=== PATIENT | male | born 1985 | race Caucasian/White ===

== ENCOUNTER → 2017-03-08 | Outpatient (CLI) | payer BC, SELFPAY ==
--- NOTE | 2017-03-08 14:39 | US ---
EXAM DESCRIPTION: Abdomen,Complete CLINICAL HISTORY: 31 years,Male,ABD PN COMPARISON: None TECHNIQUE: Multiple real-time sonographic images were obtained of the entire abdomen. FINDINGS: The liver demonstrates normal echotexture. No masses. No cysts. The liver craniocaudal length is 14.9 cm. The gallbladder demonstrates an anechoic lumen. There are no stones. There is no pericholecystic fluid. The gallbladder wall thickness is unremarkable. No intrahepatic biliary ductal dilatation. The common bile duct measures two mm. The right kidney demonstrates normal cortical echotexture and thickness. There are no stones, hydronephrosis, or masses. The right kidney measures 11.8 cm in length. The left kidney demonstrates normal cortical echotexture and thickness. There are no stones, hydronephrosis, or masses. The left kidney measures 11 cm in length. The spleen demonstrates normal echotexture. No masses. It measures 13 cm in craniocaudal length. The visualized portions of the head and body of the pancreas are unremarkable. No free-fluid in the abdomen. The aorta is unremarkable for age. IMPRESSION: Unremarkable ultrasound of the abdomen. Electronically signed by: Misael Hassan MD 03/08/2017 2:37 PM CDT
== END | disposition home or self-care (01) ==
LOC: US 08:13
PROVIDERS: ATTEND Surgery
DX: R10.11 Right upper quadrant pain (principal)

== ENCOUNTER → 2017-04-15 | Outpatient (CLI) | payer BC | END | disposition home or self-care (01) | LOC: LAB.O 16:40 | PROVIDERS: ATTEND Surgery | DX: R10.819 Abdominal tenderness, unspecified site (principal) ==

== ENCOUNTER → 2017-10-02 | Outpatient (CLI) | payer BC ==
--- NOTE | 2017-10-02 16:55 | CT ---
PROCEDURE: Abdomen/Pelvis w/Contrast HISTORY: LLQ PAIN Indication: Same as above Comparison: 10/18/2016 . Technique: CT of the abdomen and pelvis was done with intravenous contrast. Images were obtained from the lung base to the level of the pubic symphysis in axial plane, followed by orthogonal sagittal and coronal reconstruction. Oral contrast was also given for the study. The patient was injected with contrast intravenously, without any documented immediate adverse reactions. This exam was performed according to our departmental dose-optimization program, which includes automated exposure control, adjustment of the mA and/or KV according to the patient's size and/or use of iterative reconstruction technique. FINDINGS: Images through the lung bases do not show any focal infiltrates or pleural effusions. The liver, gallbladder, pancreas, spleen and the bilateral adrenal glands appear unremarkable. The bilateral kidneys enhance with contrast in a normal fashion. The urinary bladder is unremarkable . The bilateral ureters and the bilateral periureteral soft tissues and fat planes are unremarkable. The small bowel appears unremarkable, without any evidence of small bowel obstruction or bowel wall thickening. There is no CT evidence of pericecal inflammatory change or ileocecal mesenteric adenitis. The appendix is not visualized and is most likely surgically absent The ileocecal junction appears unremarkable. There is no CT evidence of acute colonic diverticulitis or colitis or large bowel obstruction. There is evidence of prior surgery in the region of the large probable The splenic and portal veins are of normal caliber, without any filling defects. There is no pathological lymphadenopathy in the retroperitoneum or in the pelvic region. There is no evidence of free fluid or free air in the abdomen or the pelvic region. There is no clinically significant abdominal aortic aneurysm. There is presence of [id number]-ru-uhnypygu size fat-containing periumbilical ventral hernia defect The visualized lumbar spine is unremarkable . The paravertebral soft tissues are unremarkable. The remainder of the pelvic structures are unremarkable. IMPRESSION: There are no acute findings on the current study. There is presence of qzvql-np-rozocbdl size fat-containing periumbilical ventral hernia defect Location of Interpretation: [facility] Electronically signed by: Lexx Queen MD 10/02/2017 4:53 PM CDT Workstation: [id number]
--- NOTE | 2017-10-02 20:01 | CT ---
PROCEDURE: Abdomen/Pelvis w/Contrast HISTORY: LLQ PAIN Indication: Same as above Comparison: 10/18/2016 . Technique: CT of the abdomen and pelvis was done with intravenous contrast. Images were obtained from the lung base to the level of the pubic symphysis in axial plane, followed by orthogonal sagittal and coronal reconstruction. Oral contrast was also given for the study. The patient was injected with contrast intravenously, without any documented immediate adverse reactions. This exam was performed according to our departmental dose-optimization program, which includes automated exposure control, adjustment of the mA and/or KV according to the patient's size and/or use of iterative reconstruction technique. FINDINGS: Images through the lung bases do not show any focal infiltrates or pleural effusions. The liver, gallbladder, pancreas, spleen and the bilateral adrenal glands appear unremarkable. The bilateral kidneys enhance with contrast in a normal fashion. The urinary bladder is unremarkable . The bilateral ureters and the bilateral periureteral soft tissues and fat planes are unremarkable. The small bowel appears unremarkable, without any evidence of small bowel obstruction or bowel wall thickening. There is no CT evidence of pericecal inflammatory change or ileocecal mesenteric adenitis. The appendix is not visualized and is most likely surgically absent The ileocecal junction appears unremarkable. There is no CT evidence of acute colonic diverticulitis or colitis or large bowel obstruction. There is evidence of prior surgery in the region of the large probable The splenic and portal veins are of normal caliber, without any filling defects. There is no pathological lymphadenopathy in the retroperitoneum or in the pelvic region. There is no evidence of free fluid or free air in the abdomen or the pelvic region. There is no clinically significant abdominal aortic aneurysm. There is presence of jvrtz-bx-bueqbrju size fat-containing periumbilical ventral hernia defect The visualized lumbar spine is unremarkable . The paravertebral soft tissues are unremarkable. The remainder of the pelvic structures are unremarkable. IMPRESSION: There are no acute findings on the current study. There is presence of jnxyc-lp-cybsdsfn size fat-containing periumbilical ventral hernia defect Location of Interpretation: [facility] Electronically signed by: Lexx Queen MD 10/02/2017 4:53 PM CDT Workstation: [id number]
== END ==
LOC: CT 09:35
PROVIDERS: ATTEND Surgery
DX: R10.32 Left lower quadrant pain (principal); K42.9 Umbilical hernia without obstruction or gangrene

== ENCOUNTER → 2018-08-28 | Outpatient (CLI) | payer BC, OTHER ==
--- NOTE | 2018-08-28 09:20 | US ---
EXAM DESCRIPTION: Abdomen,Complete CLINICAL HISTORY: ABDOMINAL PAIN ELEVATED LFTS COMPARISON: None Available. TECHNIQUE: Complete abdominal ultrasound FINDINGS: Visualized portions of the pancreas are unremarkable. No peripancreatic fluid. Bowel gas obscures some areas. Normal caliber of the aorta. Normal appearance of the inferior vena cava. Liver parenchyma is homogeneous in texture with increased echogenicity consistent with diffuse hepatic steatosis. There is sparing of parenchyma near the gallbladder. No liver mass or intrahepatic bile duct dilatation. No liver surface irregularity. Normal appearance of hepatic veins and portal vein. Gallbladder appears normal with no intraluminal stones. No gallbladder wall thickening. Common bile duct is normal in caliber measuring 6.1 mm. The right kidney measures 11.3 cm in length. Normal renal cortical echogenicity. The renal cortical thickness appears normal. No right renal mass, shadowing stone or cyst. There is no hydronephrosis. Spleen is large measuring 13.5 cm in length. No focal splenic lesion. The left kidney measures 12.1 cm in length. Normal renal cortical echogenicity. The renal cortical thickness appears normal. No left renal mass, shadowing stone or cyst. There is no hydronephrosis. IMPRESSION: Hyperechoic liver consistent with diffuse hepatic steatosis. Splenomegaly. Electronically signed by: Jose Longo MD 08/28/2018 9:18 AM CDT
== END ==
LOC: US 08:05
PROVIDERS: ATTEND Nurse Practitioner Family
DX: R10.817 Generalized abdominal tenderness (principal); R94.5 Abnormal results of liver function studies; R16.1 Splenomegaly, not elsewhere classified

== ENCOUNTER 2019-08-18 14:13 | Emergency (ER) | payer BC, OTHER ==
[2019-08-18] MEDS ORDERED: ACETAMINOPHEN 500 MG TAB PO ONE (14:49)
[2019-08-18] MEDS ORDERED: MORPHINE SULFATE INJ 10 MG/ML VIAL IV ONE (14:49)
[2019-08-18] MEDS ORDERED: SODIUM CHLORIDE 0.9% 1000ML 1,000 ML IVS ONE (14:49)
[2019-08-18] MEDS ORDERED: ONDANSETRON INJ 4 MG/2 ML VIAL IV ONE (14:49)
--- NOTE | 2019-08-18 14:59 | ED.PDOC ---
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 Pt. denies head injury LOC but c/o left rib pain right flank pain left ring finger pain (wedding band removed and given to during HPI) Denies any chest pain sob diaphoresis denies antecedent fever chills nausea vomiting diarrhea no change in diet rest bowel or bladder has PMD for follow up at bedside pt denies smoking admits occasional drinking admits FH HTN DM no other c/o today. Allergies/Adverse Reactions: Allergies NO KNOWN ALLERGY Allergy (Unverified 09/25/13 12:05) Home Medications: Ambulatory Orders Acetaminophen [Tylenol] 650 mg PO Q6H PRN #30 tab 08/18/19 Escitalopram [Lexapro] 10 mg PO DAILY 08/18/19 Ibuprofen 600 mg PO Q6H PRN #20 tab 08/18/19 Losartan Potassium 25 mg PO DAILY 08/18/19 Pantoprazole Tablet [Protonix] 40 mg PO DAILY 08/18/19 Review of Systems - Review of Systems Constitutional: States: see HPI EENTM: States: no symptoms reported Respiratory: States: no symptoms reported Cardiology: States: no symptoms reported Gastrointestinal/Abdominal: States: other Genitourinary: States: no symptoms reported Musculoskeletal: States: other - left rib pain left hand pain Skin: States: change in color Neurological: States: no symptoms reported All other Systems: Reviewed and Negative Past Medical History (General) - Patient Medical History Hx Asthma: No Hx of COPD: No Hx Hypertension: Yes Hx Diabetes: No Hx Gastroesophageal Reflux: No Surgical History: other Family Medical History - Family History Mother Hx Family Hypertension: Yes Physical Exam - Physical Exam General Appearance: Other - uncomfortable in obvious pain Head Injury: no evidence of injury Eye Exam: bilateral normal ENT Exam: no evidence of ENT injury Neck Exam: non-tender, full range of motion Cardiovascular/Respiratory: regular rate, rhythm Gastrointestinal/Abdominal: soft, tenderness, other - tender right flank abdomen soft NDNT Back Exam: CVA tenderness (R) Extremity Exam: tenderness - tender l hand Neurologic: make up operator II-XII nml as tested - Devin Coma Score Best Eye Response ([place]): (4) open spontaneously Best Verbal Response (Devin): (5) oriented Best Motor Response (Devin): (6) obeys commands Progress - Progress Progress: 08/18/19 14:[address] head and c spine and c collar secondary to distracting injury, patient declined but no sign of injury to head or neck and full ROM 08/18/19 15:13 A/P-Fall, Blunt Trauma, Rib Pain, Hand Pain, Flank Pain 1.offered ct c spine and ct head with c collar pt declined, iv tylenol morphine zofran cbc cmp trop urinalysis cxr xr pelvis xr ribs xr left hand and wrist fall precautions ekg ct abdomen pelvis reassess - Results/Orders Results/Orders: Laboratory Tests 08/18/19 08/18/19 08/18/19 15:05 15:05 15:05 WBC 10.3 RBC 5.27 Hgb 15.9 Hct 46.3 MCV 88.0 MCH 30.2 MCHC 34.3 RDW 13.1 Plt Count 287 MPV 8.8 Absolute Neuts (auto) 8.50 H Absolute Lymphs (auto) 1.10 Absolute Monos (auto) 0.60 Absolute Eos (auto) 0.10 Absolute Basos (auto) 0.00 Neutrophils % 81.7 H Lymphocytes % 11.0 L Monocytes % 6.2 Eosinophils % 0.7 L Basophils % 0.4 Sodium 138 Potassium 3.5 L Chloride 102 Carbon Dioxide 24 Anion Gap 15.5 BUN 21 H Creatinine 1.10 BUN/Creatinine Ratio 19.1 Random Glucose 93 Serum Osmolality 278.3 Calcium 9.5 Total Bilirubin 1.3 H AST 31 ALT 38 Alkaline Phosphatase 68 Troponin I 0.05 Serum Total Protein 8.3 H Albumin 4.9 Globulin 3.4 Albumin/Globulin Ratio 1.4 Urine Color Urine Appearance Urine pH Ur Specific [place] Urine Protein Urine Glucose (UA) Urine Ketones Urine Blood Urine Nitrite Urine Bilirubin Urine Urobilinogen Ur Leukocyte Esterase Urine RBC Urine WBC Ur Epithelial Cells Urine Bacteria Urine Mucus 08/18/19 15:29 WBC RBC Hgb Hct MCV MCH MCHC RDW Plt Count MPV Absolute Neuts (auto) Absolute Lymphs (auto) Absolute Monos (auto) Absolute Eos (auto) Absolute Basos (auto) Neutrophils % Lymphocytes % Monocytes % Eosinophils % Basophils % Sodium Potassium Chloride Carbon Dioxide Anion Gap BUN Creatinine BUN/Creatinine Ratio Random Glucose Serum Osmolality Calcium Total Bilirubin AST ALT Alkaline Phosphatase Troponin I Serum Total Protein Albumin Globulin Albumin/Globulin Ratio Urine Color Yellow Urine Appearance Clear Urine pH 5.5 Ur Specific [place] 1.025 Urine Protein Negative Urine Glucose (UA) Negative Urine Ketones 40 H Urine Blood Negative Urine Nitrite Negative Urine Bilirubin Negative Urine Urobilinogen 0.2 Ur Leukocyte Esterase Negative Urine RBC 0 Urine WBC 0 Ur Epithelial Cells 0 Urine Bacteria 0 Urine Mucus Trace EXAM DESCRIPTION: Hand,Left 3 Views CLINICAL HISTORY: trauma COMPARISON: None. TECHNIQUE: 3 views left FINDINGS: I see no bone joint or soft tissue abnormality. IMPRESSION: Normal left hand. Electronically signed by: Misael Franklin MD 08/18/2019 4:23 PM CDT EXAM DESCRIPTION: Wrist,Left 3 Views CLINICAL HISTORY: trauma COMPARISON: None. TECHNIQUE: 3 views left FINDINGS: No fracturing is detected. A small metallic foreign body is observed in the anterior soft tissues of the distal forearm. Its a small metallic BB. No soft tissue injury is seen. IMPRESSION: A small metallic BB is observed in the anterior soft tissues of the distal forearm. No fracturing is detected. Electronically signed by: Misael Franklin MD 08/18/2019 4:30 PM CDT EXAM DESCRIPTION: Lumbar Spine 3 Views CLINICAL HISTORY: trauma COMPARISON: None Available. TECHNIQUE: AP/lateral/coned-down lateral FINDINGS: There is good alignment of the lumbar spine. There is no fracture or bone lesion. There are no significant degenerative changes observed. IMPRESSION: Normal lumbar spine Electronically signed by: Misael Franklin MD 08/18/2019 4:27 PM CDT EXAM DESCRIPTION: Chest,2 Views CLINICAL HISTORY: 33 years Male, trauma COMPARISON: None Available TECHNIQUE: PA/lateral FINDINGS: There is no cardiac or pulmonary abnormality. The lungs are clear. There is no effusion. IMPRESSION: 1. Normal two-view chest. Electronically signed by: Misael Franklin MD 08/18/2019 4:26 PM CDT EXAM DESCRIPTION: Pelvis,2 or More Views CLINICAL HISTORY: trauma COMPARISON: None. TECHNIQUE: AP pelvis and bilateral hips FINDINGS: The pelvis is intact. No significant degenerative changes are observed. The proximal femurs are intact. No fracturing is detected. No foreign body is observed. Chain sutures observed from prior colon surgery. IMPRESSION: Normal pelvis and hips. Electronically signed by: Misael Franklin MD 08/18/2019 4:28 PM CDT EXAM DESCRIPTION: Bilateral Ribs CLINICAL HISTORY: trauma COMPARISON: None. TECHNIQUE: 6 views FINDINGS: No pneumothorax is detected. The lungs are clear. No rib fracturing is detected. IMPRESSION: No fracturing is detected. Electronically signed by: Misael Franklin MD 08/18/2019 4:26 PM CDT EXAM DESCRIPTION: Abdomen/Pelvis w/Contrast CLINICAL HISTORY: 33 years Male, trauma TECHNIQUE: This exam was performed according to our departmental dose- optimization program, which includes automated exposure control, adjustment of the mA and/or kV according to patient size and/or use of iterative reconstruction technique. COMPARISON: 10/02/2017 FINDINGS: Visualized lung bases are grossly unremarkable. Hepatic steatosis. No suspicious hepatic lesion. No biliary dilatation. Focal fatty infiltration adjacent to falciform ligament. The portal vein is patent. The gallbladder is unremarkable. The spleen, pancreas and adrenal glands are unremarkable. Normal kidneys. No hydro nephrosis. No urolithiasis. Unremarkable bladder. Surgical suture at the rectosigmoid junction. Stable perirectal lymph node series 2 image 82. No evidence of bowel obstruction or focal inflammatory change. Appendectomy. No retroperitoneal or pelvic adenopathy. No free fluid. No free air. No acute or suspicious osseous abnormality. Scattered degenerative changes present. IMPRESSION: No evidence of acute process in the abdomen or pelvis. Electronically signed by: Davin Vazquez MD 08/18/2019 4:23 PM CDT EKG-NSR 76bpm non specific TW changes No STEMI Departure - Departure Clinical Impression: Blunt trauma, Rib pain on left side, Hand pain, left, Flank pain Fall Qualifiers: Encounter type: initial encounter Qualified Code(s): W19.XXXA - Unspecified fall, initial encounter Time of Disposition: 18:35 Disposition: Discharge to Home or Self Care Condition: Fair Departure Forms: ED Discharge - Pt. Copy, Patient Portal Self Enrollment Instructions: DI for Trauma Referrals: Yusuf Max, IMPLEMENTATION ENGINEER [Primary Care Provider] - 1-2 Days Prescriptions: Acetaminophen [Tylenol] 650 mg PO Q6H PRN #30 tab PRN Reason: Pain Ibuprofen 600 mg PO Q6H PRN #20 tab PRN Reason: Pain Home Medications: Ambulatory Orders Acetaminophen [Tylenol] 650 mg PO Q6H PRN #30 tab 08/18/19 Escitalopram [Lexapro] 10 mg PO DAILY 08/18/19 Ibuprofen 600 mg PO Q6H PRN #20 tab 08/18/19 Losartan Potassium 25 mg PO DAILY 08/18/19 Pantoprazole Tablet [Protonix] 40 mg PO DAILY 08/18/19
--- NOTE | 2019-08-18 16:25 | CT ---
EXAM DESCRIPTION: Abdomen/Pelvis w/Contrast CLINICAL HISTORY: 33 years Male, trauma TECHNIQUE: This exam was performed according to our departmental dose-optimization program, which includes automated exposure control, adjustment of the mA and/or kV according to patient size and/or use of iterative reconstruction technique. COMPARISON: 10/02/2017 FINDINGS: Visualized lung bases are grossly unremarkable. Hepatic steatosis. No suspicious hepatic lesion. No biliary dilatation. Focal fatty infiltration adjacent to falciform ligament. The portal vein is patent. The gallbladder is unremarkable. The spleen, pancreas and adrenal glands are unremarkable. Normal kidneys. No hydronephrosis. No urolithiasis. Unremarkable bladder. Surgical suture at the rectosigmoid junction. Stable perirectal lymph node series 2 image 82. No evidence of bowel obstruction or focal inflammatory change. Appendectomy. No retroperitoneal or pelvic adenopathy. No free fluid. No free air. No acute or suspicious osseous abnormality. Scattered degenerative changes present. IMPRESSION: No evidence of acute process in the abdomen or pelvis. Electronically signed by: Davin Vazquez MD 08/18/2019 4:23 PM CDT
--- NOTE | 2019-08-18 16:25 | RAD ---
EXAM DESCRIPTION: Hand,Left 3 Views CLINICAL HISTORY: trauma COMPARISON: None. TECHNIQUE: 3 views left FINDINGS: I see no bone joint or soft tissue abnormality. IMPRESSION: Normal left hand. Electronically signed by: Misael Franklin MD 08/18/2019 4:23 PM CDT
--- NOTE | 2019-08-18 16:27 | RAD ---
EXAM DESCRIPTION: Bilateral Ribs CLINICAL HISTORY: trauma COMPARISON: None. TECHNIQUE: 6 views FINDINGS: No pneumothorax is detected. The lungs are clear. No rib fracturing is detected. IMPRESSION: No fracturing is detected. Electronically signed by: Misael Franklin MD 08/18/2019 4:26 PM CDT
--- NOTE | 2019-08-18 16:28 | RAD ---
EXAM DESCRIPTION: Lumbar Spine 3 Views CLINICAL HISTORY: trauma COMPARISON: None Available. TECHNIQUE: AP/lateral/coned-down lateral FINDINGS: There is good alignment of the lumbar spine. There is no fracture or bone lesion. There are no significant degenerative changes observed. IMPRESSION: Normal lumbar spine Electronically signed by: Misael Franklin MD 08/18/2019 4:27 PM CDT
--- NOTE | 2019-08-18 16:28 | RAD ---
EXAM DESCRIPTION: Chest,2 Views CLINICAL HISTORY: 33 years Male, trauma COMPARISON: None Available TECHNIQUE: PA/lateral FINDINGS: There is no cardiac or pulmonary abnormality. The lungs are clear. There is no effusion. IMPRESSION: 1. Normal two-view chest. Electronically signed by: Misael Franklin MD 08/18/2019 4:26 PM CDT
--- NOTE | 2019-08-18 16:30 | RAD ---
EXAM DESCRIPTION: Pelvis,2 or More Views CLINICAL HISTORY: trauma COMPARISON: None. TECHNIQUE: AP pelvis and bilateral hips FINDINGS: The pelvis is intact. No significant degenerative changes are observed. The proximal femurs are intact. No fracturing is detected. No foreign body is observed. Chain sutures observed from prior colon surgery. IMPRESSION: Normal pelvis and hips. Electronically signed by: Misael Franklin MD 08/18/2019 4:28 PM CDT
--- NOTE | 2019-08-18 16:32 | RAD ---
EXAM DESCRIPTION: Wrist,Left 3 Views CLINICAL HISTORY: trauma COMPARISON: None. TECHNIQUE: 3 views left FINDINGS: No fracturing is detected. A small metallic foreign body is observed in the anterior soft tissues of the distal forearm. Its a small metallic BB. No soft tissue injury is seen. IMPRESSION: A small metallic BB is observed in the anterior soft tissues of the distal forearm. No fracturing is detected. Electronically signed by: Msiael Franklin MD 08/18/2019 4:30 PM CDT
[2019-08-18 18:52] VITALS: BP 122/82; TEMP 98.6; O2SAT 98
== END 2019-08-18 18:50 | disposition home or self-care (01) ==
LOC: ER 14:13
DX: R07.81 Pleurodynia (principal); R10.9 Unspecified abdominal pain; M79.642 Pain in left hand; I10 Essential (primary) hypertension; Z79.899 Other long term (current) drug therapy; W17.89XA Other fall from one level to another, initial encounter; Y92.9 Unspecified place or not applicable
CPT/HCPCS: 71046; 71111; 72100; 72190; 73110; 73130; 74177; 80053; 81001; 84484; 85025; 93005; J2270; J2405; J7030

== ENCOUNTER → 2019-09-04 | Outpatient (CLI) | payer BC ==
--- NOTE | 2019-09-04 13:08 | CT ---
EXAM DESCRIPTION: Chest w/Contrast CLINICAL HISTORY: 33 years, Male, CONTUSION OF LUNG, UNILATERAL, INITIAL ENCOUNTER COMPARISON: None TECHNIQUE: Thin-section noncontrast axial CT images are obtained according to our protocol. Reconstructed MPR images are created and reviewed as well as 3-D shaded surface display images of the thoracic cage. FINDINGS: Lungs: No consolidating pulmonary infiltrate or groundglass infiltrate. No pulmonary contusion or laceration. No worrisome pulmonary mass or nodule. Mediastinum: Lymph nodes are normal in size. Normal vascular contours. Heart size is normal with no pericardial effusion. Chest wall/axilla: Fractured posterolateral left eighth and ninth ribs. The eighth rib shows callus formation and the fracture is nondisplaced. Ninth rib fracture is essentially nondisplaced. Mild soft tissue thickening around the fractured rib. No callus formation around this fracture. Three-D shaded surface display images show a left rib fractures. The more inferior fracture has a longitudinal component extending medially with slight inferior displacement. The gap at the fracture site measures 1 to 2 mm. Lower neck/supraclavicular: No mass or adenopathy. Upper abdomen: Unremarkable upper abdominal viscera. Coronal and sagittal reformatted images confirm the findings. Intact sternum and T-spine. No aortic injury. No evidence of splenic laceration. Small accessory splenule. IMPRESSION: Posterolateral left eighth and ninth rib fractures are nondisplaced. This exam was performed according to our departmental dose-optimization program, which includes automated exposure control, adjustment of the mA and/or kV according to patient size and/or use of iterative reconstruction technique. Total DLP equals 899.7 mGycm. Electronically signed by: Jose Longo MD 09/04/2019 1:07 PM CDT
== END ==
LOC: CT 08:12
PROVIDERS: ATTEND Family Medicine
DX: S27.321A Contusion of lung, unilateral, initial encounter (principal); S22.42XA Multiple fractures of ribs, left side, initial encounter for closed fracture